=== PATIENT | female | born 2000 | race Caucasian/White ===

== ENCOUNTER 2022-03-26 10:33 | Emergency (ER) | payer BC ==
--- OUTSIDE RECORDS SUMMARY | 2022-03-26 10:36 | XMS REPORT | Continuity of Care Document ---
:2000 Author Organization [facility] t Address [address] [place] [address] Care Team Providers Name Role Phone Cinthya Esquivel PA-C Primary Care Physician [phone] KEILY LAND Attending Clinician Unavailable LIANNE KERNS Attending Clinician Unavailable Lianne Kerns MD Attending Clinician Doctor Unassigned, [place] Attending Clinician Unavailable Dior Eastman MD Attending Clinician DIOR EASTMAN Attending Clinician Unavailable CINTHYA ESQUIVEL Attending Clinician Unavailable Cinthya Esquivel PA-C Attending Clinician Payers Payer Name Policy Type Policy Number Effective Date Expiration Date [place] [address] [id number] 2022 00:00:00 [employer] [facility] - [id number] 2020 00:00:00 OUT OF STATE Problems Condition Condition Condition Status Onset Resolution Last Treating Co mments Source Name Details Category Date Date Treatment Clinician Date Pharyngiti Pharyngiti Disease Active 2021-05 Jasmin elseericka s s 05-24 Seybold 00:00: - 00 Externa l Seasonal Seasonal Disease Active 2021-05 Kelse y allergic allergic 05-24 Seybol d rhinitis rhinitis 00:00: - due to due to 00 Externa pollen pollen l No known No known Disease Unive rs active active ity of problems problems [facility] Allergies, Adverse Reactions, Alerts Allergy Allergy Status Severity Reaction(s) Onset Inactive Treating Comm ents Source Name Type Date Date Clinician Penicill Propensi Active Hives 2021-05 Diana ins ty to 05-24 Seybold adverse 00:00: - reaction 00 Externa s l Social History Social Habit Start Date Stop Date Quantity Comments Source Alcohol intake 2022-03-24 2022-03-24 Lifetime Diana Sey bold - 00:00:00 00:00:00 non-drinker External (finding) Sex Ass[birth year] At [birth year] Diana Se ybold - 00:00:00 00:00:00 External Smoking Status Start Date Stop Date Source Never smoked tobacco Diana Seyb old - External Unknown if ever smoked [facility] Medications Ordered Filled Start Stop Current Ordering Indication Dosage Frequency Signature Comments Components Source Medication Medication Date Date Medication? Clinician (SIG) Name Name Cetirizine 2021-05 Yes 10mg Take 10 mg K elsey 10 MG oral 05-24 by mouth Seybo ld Tablet 11:13: daily - 50 Externa l Montelukast 2021-05 Yes [id number] 10mg Take 1 Diana (Singulair) 05-24 tablet (10 Se ybold 10 MG oral 00:00: mg total) - Tablet 00 by mouth Externa tablet nightly l FLUTICASONE 2021-05 Yes [id number] 50ug Use 1 K elsey PROPIONATE, 05-24 spray (50 Sey bold NASAL, 50 00:00: mcg total) - MCG/ACT 00 in each Externa nasal nostril l Suspension daily Azithromyci 2021-05- Yes [id number] Take 2 Diana n 250 MG 05-24 11-15 tablets by Seyb old oral Tablet 00:00: 05:59 mouth on - 00 :00 day 1 then Externa 1 tablet l by mouth daily for 4 days thereafter . FLUTICASONE 2021-05- No Kelse y PROPIONATE, 0-26 03-24 Seybold NASAL, 50 00:00: 00:00 - MCG/ACT 00 :00 Externa nasal l Suspension KETOCONAZOL Yes Diana E, TOPICAL, 01-26 Seybold 2 % apply 00:00: - externally 00 Externa Shampoo l bromphenira Yes [id number] 10mL Take 10 mL Univers mine-pseudo 2-10 by mouth 4 it y of ephedrine-D 00:00: (four) Hui Harris (BROMFED 00 times Medical DM) 2-30-10 daily as Bran ch mg/5 mL needed for syrup Congestion /Allergies . Immunizations Ordered Immunization Filled Date Status Comments Sour ce Name Immunization Name Meningococcal Vaccine- 2020-11-21 Completed Michael donahueey Seybold - Conjugate(Menactra) 00:00:00 Exter nal Meningococcal 2020-11-21 Completed University of Polysaccharide (groups 00:00:00 [facility] A, C, Y and W-135) Branch conjugate vaccine (MCV4P) Meningococcal Vaccine- 2018-12-28 Completed Michael escobedo Seybold - Conjugate(Menveo) 00:00:00 Externa l Meningococcal 2018-12-28 Completed University Oligosaccharide 00:00:00 [place] [facility] (groups A, C, Y and Branc h W-135) conjugate vaccine (MCV4O) Meningococcal 2014-12-23 Completed University of Oligosaccharide 00:00:00 [place] [facility] (groups A, C, Y and Branc h W-135) conjugate vaccine (MCV4O) Meningococcal Vaccine- 2014-12-23 Completed Michael escobedo Seybold - Conjugate(Menactra) 00:00:00 Exter nal Meningococcal Vaccine- 2014-12-23 Completed Michael escobedo Seybold - Conjugate(Menveo) 00:00:00 Externa l Tdap- (Boostrix, 2014-12-23 Completed Diana hernandez - Adacel) 00:00:00 External TDAP 2014-12-23 Completed University of 00:00:00 [facility] Influenza Virus 2012-05-23 Completed Diana blanton - Vaccine, Whole Virus 00:00:00 Exte rnal HEPATITIS A 2007-07-06 Completed University of 00:00:00 [facility] HEPATITIS A- PEDI/ADOL 2007-07-06 Completed Michael Figueroaold - 00:00:00 External DTAP 2006-12-26 Completed University 00:00:00 [facility] HEPATITIS A 2006-12-26 Completed University 00:00:00 [facility] Pneumococcal 13 2006-12-26 Completed Universit y of Conjugate, PCV13 00:00:00 [facility] dical (Prevnar 13) Branch Polio (IPV/OPV) 2006-12-26 Completed Universit y of 00:00:00 [facility] Proquad 2006-12-26 Completed University of (MMR/VARICELLA) 00:00:00 [facility] ical Branch DTaP Unspecified 2006-12-26 Completed Diana hernandez - 00:00:00 External DTaP 2006-12-26 Completed Diana Deal - 00:00:00 External HEPATITIS A- PEDI/ADOL 2006-12-26 Completed Michael Deal - 00:00:00 External MMR/Varicella 2006-12-26 Completed Diana lora - (ProQuad) 00:00:00 External Pneumococcal Vaccine, 2006-12-26 Completed Paolo Deal - Conjugate 7 00:00:00 External Pneumococcal Vaccine, 2006-12-26 Completed Paolo Deal - Conjugate 13 00:00:00 External Polio Vaccine 2006-12-26 Completed Diana lora - 00:00:00 External IPV- Inactivated Polio 2006-12-26 Completed Michael Deal - Vaccine 00:00:00 External HEPATITIS A 2004-12-28 Completed University of 00:00:00 [facility] HEPATITIS A- PEDI/ADOL 2004-12-28 Completed Michael Deal - 00:00:00 External HIB 4 Dose Schedule 2003-12-24 Completed Unive rsity of 00:00:00 [facility] MMR 2003-12-24 Completed University of 00:00:00 [facility] Pneumococcal 13 2003-12-24 Completed Universit y of Conjugate, PCV13 00:00:00 [facility] dical (Prevnar 13) Branch Yellow Fever, Live 2003-12-24 Completed Univer sity of 00:00:00 [facility] HIB- Haemophilus 2003-12-24 Completed Diana hernandez - Influenzae Type B 00:00:00 Externa l MMR- Measles, Mumps, 2003-12-24 Completed Cyndy Deal - Rubella 00:00:00 External Pneumococcal Vaccine, 2003-12-24 Completed Paolo Deal - Conjugate 13 00:00:00 External Yellow Fever Vaccine 2003-12-24 Completed Cyndy Deal - 00:00:00 External DTAP 2003-07-02 Completed University of 00:00:00 [facility] HIB 4 Dose Schedule 2003-07-02 Completed Unive rsity of 00:00:00 [facility] Hep B, Adol or Pedi 2003-07-02 Completed Unive rsity of Dosage 00:00:00 [facility] Polio (IPV/OPV) 2003-07-02 Completed Universit y of 00:00:00 [facility] DTaP 2003-07-02 Completed Diana Deal - 00:00:00 External Hepatitis B, 2003-07-02 Completed Diana Juarez ld - Adolescent Or 00:00:00 External Pediatric HIB- Haemophilus 2003-07-02 Completed Diana sanchezbold - Influenzae Type B 00:00:00 Externa l Polio Vaccine 2003-07-02 Completed Diana lora - 00:00:00 External DTAP 2003-04-30 Completed University of 00:00:00 [facility] HIB 4 Dose Schedule 2003-04-30 Completed Unive rsity of 00:00:00 [facility] Pneumococcal 13 2003-04-30 Completed Universit y of Conjugate, PCV13 00:00:00 [facility] dical (Prevnar 13) Branch Polio (IPV/OPV) 2003-04-30 Completed Universit y of 00:00:00 [facility] DTaP 2003-04-30 Completed Diana Deal - 00:00:00 External HIB- Haemophilus 2003-04-30 Completed Diana sanchezbold - Influenzae Type B 00:00:00 Externa l Pneumococcal Vaccine, 2003-04-30 Completed Paolo Deal - Conjugate 13 00:00:00 External Polio Vaccine 2003-04-30 Completed Diana lora - 00:00:00 External DTAP 2003-02-26 Completed University of 00:00:00 [facility] HIB 4 Dose Schedule 2003-02-26 Completed Unive rsity of 00:00:00 [facility] Hep B, Adol or Pedi 2003-02-26 Completed Unive rsity of Dosage 00:00:00 [facility] Pneumococcal 13 2003-02-26 Completed Universit y of Conjugate, PCV13 00:00:00 [place] [facility] (Prevnar 13) Branch Polio (IPV/OPV) 2003-02-26 Completed Universit y of 00:00:00 [facility] DTaP 2003-02-26 Completed Diana Deal - 00:00:00 External Hepatitis B, 2003-02-26 Completed Diana Juarez ld - Adolescent Or 00:00:00 External Pediatric HIB- Haemophilus 2003-02-26 Completed Diana sanchezbold - Influenzae Type B 00:00:00 Externa l Pneumococcal Vaccine, 2003-02-26 Completed Paolo Deal - Conjugate 13 00:00:00 External Polio Vaccine 2003-02-26 Completed Diana Figueroa old - 00:00:00 External Hep B, Adol or Pedi 2000 Completed Unive rsity of Dosage 00:00:00 [facility] Hepatitis B, 2000 Completed Diana Juarez ld - Adolescent Or 00:00:00 External Pediatric Vital Signs Vital Name Observation Time Observation Value Comments Source Systolic blood 2022-03-24 16:48:00 100 mm[Hg] Diana Knappybold - pressure External Diastolic blood 2022-03-24 16:48:00 56 mm[Hg] Louis barnett Seybold - pressure External Heart rate 2022-03-24 16:48:00 93 /min Diana Sathya danielbold - External Body temperature 2022-03-24 16:48:00 36.67 Madiha Cyndy daniel Seybold - External Respiratory rate 2022-03-24 16:48:00 14 /min Cyndy ey Seybold - External Body height 2022-03-24 16:48:00 160 cm Diana S eybold - External Body weight 2022-03-24 16:48:00 44.453 kg Diana S eybold - External BMI 2022-03-24 16:48:00 17.36 kg/m2 Diana S danielbold - External Systolic blood 2021-06-25 19:41:00 101 mm[Hg] Univer sity of pressure [facility] Diastolic blood 2021-06-25 19:41:00 79 mm[Hg] Unive rsity of pressure [facility] Heart rate 2021-06-25 19:41:00 95 /min Universi ty of [facility] Body temperature 2021-06-25 19:41:00 37.06 Madiha Univ ersity of [facility] Respiratory rate 2021-06-25 19:41:00 23 /min [facility] Body weight 2021-06-25 19:41:00 45.87 [facility] Oxygen saturation in 2021-06-25 19:41:00 98 /min [facility] Arterial blood by [facility] Pulse oximetry [place] Procedures Procedure Date / Time Performed Performing Clinician Sourc e POCT GRP A STREP 2021-06-25 00:00:00 Lianne Kerns [facility] Clinic POCT FLU A AND B 2021-06-25 00:00:00 Lianne Kerns [facility] Encounters Start End Encounter Admission Attending Care Care Encounter Source Date/Time Date/Time Type Type Clinicians Facility Department ID 2022-03-24 2022-03-24 Outpatient DIANA LAND [id number] Diana 11:30:00 11:30:00 KEILY mckeon 2021-06-25 2021-06-25 Outpatient R SAUMYA [facility] [id number] [facility] 13:20:00 14:27:42 LIANNE park [facility] 2021-06-25 2021-06-25 Office [facility] [id number] [facility] 13:20:00 14:27:42 Visit Lianne AMBROSIO [id number] [facility]y [id number] [facility] [id number] [facility] [address] 2021-06-25 2021-06-25 Orders Doctor BAINS [id number] Univers 00:00:00 00:00:00 Only Unassigned, MIREYA [id number] ity of [place] [facility] [id number] Odilon as [id number] [facility] 00[address] Branch 2020-12-29 2020-12-29 Orders Doctor HERSON [id number] Univers 00:00:00 00:00:00 Only Unassigned, MIREYA [id number] ity of [place] [facility] [id number] Odilon as [id number] [facility] 009 Branch 2020-12-232020-12-23 Telephone Dior Eastman [facility] [id number] Univers 00:00:00 00:00:00 [place] [id number] it y of Pediatric [id number] [facility] [id number] [address] 2020-11-21 2020-11-21 Office Dior Eastman [facility] [id number] Univers 08:23:31 08:43:31 Visit Hebert [id number] it y of Pediatric [id number] [facility] [id number] [address] 2020-11-21 2020-11-21 Outpatient R DIOR EASTMAN [facility] [id number] Univers 08:20:00 08:20:00 [facility] 2020-11-04 2020-11-04 Outpatient R [facility] [id number] Univers 07:50:00 07:50:00 , CINTHYA park [facility] 2020-06-26 2020-06-26 Telephone [facility] [id number] Univers 00:00:00 00:00:00 , Cinthya Ambrosio [id number] it y of Pediatric [id number] [facility] [id number] [address] 2020-06-24 2020-06-24 Outpatient R [facility] [id number] Univers 15:50:00 15:50:00 , CINTHYA park [facility] 2020-06-24 2020-06-24 Letter [facility] [id number] Univers 00:00:00 00:00:00 (Out) , Cinthya Ambrosio [id number] it y of Pediatric [id number] [facility] [id number] [address] Results Test Description Test Time Test Comments Results Result Comments Source POCT FLU A AND B (MOLECULAR) 2021-06-25 20:11:00 Test Item Value Reference Range Interpretation Comme nts POCT INFLUENZA A (test code = 3840) negative Negative - Negativ e POCT INFLUENZA B (test code = 3841) negative Negative - Negativ e [facility]2021-06-25 19:52:00 Test Item Value Reference Range Interpretation Comments POCT GP A STREP (test code = negative Negative - Negative 17010-3) [facility]
--- NOTE | 2022-03-26 12:20 | RAD REPORT ---
EXAM DESCRIPTION: RAD - Neck Soft Tissue - 03/26/2022 11:50 am CLINICAL HISTORY: PAIN COMPARISON: No comparisons FINDINGS: Prevertebral soft tissues are normal. Epiglottis and aryepiglottic folds are normal. Air c olumn is patent. No foreign body is seen. IMPRESSION: Negative study.
--- NOTE | 2022-03-26 12:31 | ER ---
Nurse's Notes [facility] Name: Sejal Aquino Age: 21 yrs Sex: Female : 2000 Arrival Date: 03/26/2022 Time: 10:36 Bed 9 Private MD: Shakeel Min Diagnosis: Pain in throat Presentation: 03/26 10:59 Chief complaint: Patient states: "When I eat, I have a hard time swallowing. It's been ss going on for a month, but the past few days it's getting worse. It even feels like it's harder to breath." Pt denies pain. Coronavirus screen: Client denies travel out of the [place] in the last 14 days. Ebola Screen: Patient denies exposure to infectious person. Patient denies travel to an Ebola-affected area in the 21 days before illness onset. Initial Sepsis Screen: Does the patient meet any 2 criteria? No. Patient's initial sepsis screen is negative. Does the patient have a suspected source of infection? No. Patient's initial sepsis screen is negative. Risk Assessment: Do you want to hurt yourself or someone else? Patient reports no desire to harm self or others. Onset of symptoms is unknown. 10:59 Method Of Arrival: Ambulatory ss 10:59 Acuity: MALA 3 Historical: - Allergies: 11:01 PENICILLINS; ss - PMHx: 11: None; ss - PSHx: 11:01 None; ss - Immunization history:: Client reports having NOT received the Covid vaccine. - Social history:: Smoking status: Patient denies any tobacco usage or history of. Vital Signs: 10:59 BP 120 / 96; Pulse 91; Resp 16; Temp 99.2(TE); Pulse Ox 98% on R/A; Weight 44.45 kg; ss Height 5 ft. 3 in. (160.02 cm); Pain 0/10; 10:59 Body Mass Index 17.36 (44.45 kg, 160.02 cm) ED Course: 10:36 Patient arrived in ED. am2 10:38 Shakeel Min DO is Private Physician. am2 10:41 [facility]. jl9 10:41 Avery Curiel MD is Attending Physician. jl9 11:01 Triage completed. ss 11:01 Arm band placed on right wrist. 11:50 XRAY Neck Soft Tissue In Process Unspecified. EDMS 12:28 Shyla Kennedy, RN is Primary Nurse. em6 12:51 Strep Sent. 12:53 No provider procedures requiring assistance completed. Patient did not have IV access ss during this emergency room visit. Administered Medications: No medications were administered Outcome: 12:31 Discharge ordered by . candi 12:53 Discharged to home ambulatory. 12:53 Condition: good 12:53 Discharge instructions given to patient, Instructed on discharge instructions, follow up and referral plans. Demonstrated understanding of instructions, follow-up care. 12:53 Patient left the ED. Signatures: Dispatcher [employer] EDMS Evelina Scott RN RN Andria Cortes Zaina zm Linares, John 9 Shyla Kennedy, RN RN em6 Corrections: (The following items were deleted from the chart) 11:02 11:01 Allergies: No Known Allergies; ss
--- NOTE | 2022-03-26 12:32 | EDPHYS ---
Physician Documentation [facility] Name: Sejal Aquino Age: 21 yrs Sex: Female : 2000 Arrival Date: 03/26/2022 Time: 10:36 Bed 9 Private MD: Shakeel Min ED Physician Avery Curiel HPI: 03/26 11:57 This 21 yrs old Female presents to ER via Ambulatory with complaints of jl9 Difficulty Swallowing. Patient currently seeing her PCP/ GI for issue. . 11:57 The patient presents with a foreign body sensation in the throat. Onset: The jl9 symptoms/episode began/occurred 1 month(s) ago. Associated signs and symptoms: The patient has no apparent associated signs or symptoms. Severity of symptoms: in the emergency department the symptoms a " 0" out of "10". Modifying factors: The patient symptoms are alleviated by the patient symptoms are aggravated by eating food. Associated signs and symptoms: The patient has no apparent associated signs or symptoms. Historical: - Allergies: 11:01 PENICILLINS; ss - PMHx: 11: None; ss - PSHx: 11: None; ss - Immunization history:: Client reports having NOT received the Covid vaccine. - Social history:: Smoking status: Patient denies any tobacco usage or history of. ROS: 11:58 Constitutional: Negative for fever, chills, and weight loss, Eyes: Negative for injury, jl9 pain, redness, and discharge. 11:58 Neck: Negative for injury, pain, and swelling, Cardiovascular: Negative for chest pain, palpitations, and edema, Respiratory: Negative for shortness of breath, cough, wheezing, and pleuritic chest pain, Abdomen/GI: Negative for abdominal pain, nausea, vomiting, diarrhea, and constipation, Back: Negative for injury and pain, : Negative for injury, bleeding, discharge, and swelling, MS/Extremity: Negative for injury and deformity, Skin: Negative for injury, rash, and discoloration, Neuro: Negative for headache, weakness, numbness, tingling, and seizure, Psych: Negative for depression, anxiety, suicide ideation, homicidal ideation, and hallucinations, Allergy/Immunology: Negative for hives, rash, and allergies, Endocrine: Negative for neck swelling, polydipsia, polyuria, polyphagia, and marked weight changes, Hematologic/Lymphatic: Negative for swollen nodes, abnormal bleeding, and unusual bruising. 11:58 ENT: Positive for foreign body sensation. Exam: 11:58 Constitutional: This is a well developed, well nourished patient who is awake, alert, jl9 and in no acute distress. Head/Face: Normocephalic, atraumatic. Eyes: Pupils equal round and reactive to light, extra-ocular motions intact. Lids and lashes normal. Conjunctiva and sclera are non-icteric and not injected. Cornea within normal limits. Periorbital areas with no swelling, redness, or edema. ENT: Mucous membranes moist. Neck: Trachea midline, no thyromegaly or masses palpated, and no cervical lymphadenopathy. Supple, full range of motion without nuchal rigidity, or vertebral point tenderness. No Meningismus. Chest/axilla: Normal chest wall appearance and motion. Nontender with no deformity. No lesions are appreciated. Cardiovascular: Regular rate and rhythm with a normal S1 and S2. No gallops, murmurs, or rubs. Normal PMI, no JVD. No pulse deficits. Respiratory: Lungs have equal breath sounds bilaterally, clear to auscultation and percussion. No rales, rhonchi or wheezes noted. No increased work of breathing, no retractions or nasal flaring. Abdomen/GI: Soft, non-tender, with normal bowel sounds. No distension or tympany. No guarding or rebound. No evidence of tenderness throughout. Back: No spinal tenderness. No costovertebral tenderness. Full range of motion. Skin: Warm, dry with normal turgor. Normal color with no rashes, no lesions, and no evidence of cellulitis. MS/ Extremity: Pulses equal, no cyanosis. Neurovascular intact. Full, normal range of motion. Neuro: Awake and alert, GCS 15, oriented to person, place, time, and situation. Cranial nerves II-XII grossly intact. Motor strength 5/5 in all extremities. Sensory grossly intact. Cerebellar exam normal. Normal gait. Psych: Awake, alert, with orientation to person, place and time. Behavior, mood, and affect are within normal limits. Vital Signs: 10:59 BP 120 / 96; Pulse 91; Resp 16; Temp 99.2(TE); Pulse Ox 98% on R/A; Weight 44.45 kg; ss Height 5 ft. 3 in. (160.02 cm); Pain 0/10; 10:59 Body Mass Index 17.36 (44.45 kg, 160.02 cm) ss MDM: 11:59 Data reviewed: vital signs, nurses notes. jl9 12:20 Patient medically screened. jl9 12:30 Counseling: I had a detailed discussion with the patient and/or guardian regarding: the jl9 historical points, exam findings, and any diagnostic results supporting the discharge/admit diagnosis, radiology results, the need for outpatient follow up, to return to the emergency department if symptoms worsen or persist or if there are any questions or concerns that arise at home. 03/26 10:41 Order name: Strep jl9 03/26 11:05 Order name: XRAY Neck Soft Tissue; Complete Time: 12:30 jl9 Administered Medications: No medications were administered Disposition Summary: 03/26/22 12:31 Discharge Ordered Location: Home jl9 Condition: Stable jl9 Diagnosis - Pain in throat jl9 Followup: jl9 - With: Private Physician - When: 1 - 2 days - Reason: Recheck today's complaints, Continuance of care, Re-evaluation by your physician Discharge Instructions: - Discharge Summary Sheet jl9 - Sore Throat, [id number] jl9 Forms: - Medication Reconciliation Form jl9 - Thank You Letter jl9 - Antibiotic Education jl9 - Prescription Opioid Use jl9 Signatures: Dispatcher [employer] Evelina Tang RN RN David Castle jl9 Corrections: (The following items were deleted from the chart) 11:02 11:01 Allergies: No Known Allergies; [facility] 11:58 11:57 This 21 yrs old Female presents to ER via Ambulatory with complaints of jl9 Difficulty Swallowing. jl9
[2022-03-26 13:33] VITALS: BP 120/96; TEMP 99.2; O2SAT 98
== END 2022-03-26 12:53 | disposition home or self-care (01) ==
LOC: ER 10:33
DX: R07.0 Pain in throat (principal); Z88.0 Allergy status to penicillin
CPT/HCPCS: 70360; 87070; 87081; 99283